=== PATIENT | female | born 2000 | race Caucasian/White ===

== ENCOUNTER 2023-02-28 23:25 | Inpatient (IN) | payer OTHER ==
[2023-02-28 23:51] VITALS: BMI 27.6
[2023-03-01 01:16] LABS: Fetal Membranes Rupture RUPTURE DETECTED (No Rupture)
[2023-03-01] MEDS ORDERED: hydrALAZINE 20 MG/ML VIAL SLOW IVP PRN ×2 (02:18→11:28)
[2023-03-01] MEDS ORDERED: Ondansetron PF 4 MG/2 ML Vial IVP PRN (02:18)
[2023-03-01] MEDS ORDERED: Lidocaine 1% (PF) 30 ML VIAL SC PRN (02:18)
[2023-03-01] MEDS ORDERED: fentaNYL 50 mcg/mL 1 mL Vial SLOW IVP PRN (02:18)
[2023-03-01] MEDS ORDERED: Acetaminophen 500 MG TAB PO PRN (02:18)
[2023-03-01] MEDS ORDERED: Promethazine HCl 25 MG/ML VIAL IM PRN (02:18)
[2023-03-01] MEDS ORDERED: Lactated Ringer's 1,000 ML IV SCH (02:30)
[2023-03-01] MEDS ORDERED: Oxytocin 30 units/NS 500 ML 500 ML IV SCH (02:30)
[2023-03-01 03:20] LABS: Hematocrit 34.8 % (34.9-44.5); Hemoglobin 12.1 g/dL (12.0-15.5); Mean Corpuscular HGB CONC 34.8 g/dL (32.0-36.0); Mean Corpuscular Hemoglobin 30.6 pg (27.0-33.0); Mean Corpuscular Volume 87.9 fl (81.6-98.3); Mean Platelet Volume 12.6 fl (7.4-10.4); Platelet Count 177 10x3/uL (150-450); RBC Distribution Width 12.5 % (11.5-14.5); Red Blood Cell (RBC) Count 3.96 10x6/uL (3.90-5.03); White Blood Cell (WBC) Count 15.2 10x3/uL (3.5-10.5)
[2023-03-01 03:32] LABS: Glucose 178 mg/dL (70-105); HBSAg Index 0.17 S/CO (0-0.99); Hep B Surf Ag - L&D Non-Reactive S/CO (NonReactive)
[2023-03-01 03:48] LABS: Syphilis Antibody Nonreactive (Nonreactive); Syphilis Antibody Index 0.03 S/CO (<1.00 Non-Reactive)
[2023-03-01] MEDS ORDERED: Ibuprofen 800 MG TAB PO SCH (10:00)
[2023-03-01] MEDS ORDERED: Milk Of Magnesia 30 ML UDCUP PO PRN (11:28)
[2023-03-01] MEDS ORDERED: Benzocaine-Menthol 82.5 ML CAN TOP PRN (11:28)
[2023-03-01] MEDS ORDERED: Lanolin Ointment 7 GM TUBE TOP PRN (11:28)
[2023-03-01] MEDS ORDERED: Bisacodyl 10 MG SUPP PR PRN (11:28)
[2023-03-01] MEDS ORDERED: Boostrix 0.5 ML (Tdap) VIAL (>/=7 yrs of age) IM ONE (11:28)
[2023-03-01] MEDS: Ibuprofen 800 MG TAB PO SCH ×2 (20:03)
[2023-03-01] MEDS: Docusate 100 MG CAP PO SCH (20:04)
[2023-03-02] MEDS: Ibuprofen 800 MG TAB PO SCH ×2 (04:54→12:57)
[2023-03-02] MEDS: Ferrous Sulfate 325 MG TAB PO SCH ×2 (07:39→08:24)
[2023-03-02 08:08] VITALS: BP 131/72; TEMP 98.5
[2023-03-02] MEDS: Docusate 100 MG CAP PO SCH (08:24)
[2023-03-02] MEDS ORDERED: Prenatal Vitamin 1 TAB PO SCH (09:00)
== END 2023-03-02 15:20 | disposition home or self-care (01) | DRG 807 ==
LOC: CSHLD/OP 23:25 → CSHLD 03-01 02:18 → CSHPP 03-01 22:10
PROVIDERS: ADMIT Obstetrics & Gynecology; ATTEND Obstetrics & Gynecology
PROC: 10E0XZZ Delivery of Products of Conception, External Approach (ICD-10-PCS; principal; 2023-03-01)
PROC: 0KQM0ZZ Repair Perineum Muscle, Open Approach (ICD-10-PCS; 2023-03-01)
DX: O42.02 Full-term premature rupture of membranes, onset of labor within 24 hours of rupture (principal); Z37.0 Single live birth; Z3A.39 39 weeks gestation of pregnancy; O70.1 Second degree perineal laceration during delivery
CPT/HCPCS: 36415; 82947; 84112; 85027; 86780; 86850; 86900; 86901; 87340; 99285